=== PATIENT | female | born 1960 | race American Indian/Alaskan Native ===

== ENCOUNTER 2020-11-04 11:43 | Outpatient (CLI) | payer OTHER ==
--- NOTE | 2020-11-04 13:36 | XRay Report ---
BILATERAL KNEES STANDING AP VIEW INDICATION: Bilateral knee pain. COMPARISON: None. IMPRESSION: Normal bone mineralization. No significant valgus or varus deformity. Mild to moderate m edial compartment joint space narrowing and tibial spine spurring is identified in both knees. There is mild marginal spurring in the lateral compartment of the left knee. No acute osseous abnormality o r bone lesion is detected. BILATERAL ANKLES 3 VIEWS INDICATION: BILATERAL ANKLE PAIN. COMPARISON: None. IMPRESSION: No acute osseous or soft tissue abnormality. No significant DJD. Moderate plantar spu r is noted on the left side. Signer Name: Errol Mcdaniels Jr, MD Signed: 11/04/2020 1:32 PM Workstation Name: [id number]
== END 2020-11-04 11:44 | disposition home or self-care (01) ==
LOC: XRAY 11:43
PROVIDERS: ATTEND Orthopaedic Surgery
DX: M17.0 Bilateral primary osteoarthritis of knee (principal); M77.32 Calcaneal spur, left foot; M77.31 Calcaneal spur, right foot; M77.8 Other enthesopathies, not elsewhere classified
CPT/HCPCS: 73565

== ENCOUNTER 2020-11-22 13:27 | Emergency (ER) | payer OTHER ==
[2020-11-22 15:11] VITALS: BP 171/85
--- NOTE | 2020-11-22 16:56 | Emergency Department Report ---
ED General Adult HPI - General Chief complaint: Earache Stated complaint: EAR INFECTION Time Seen by Provider: 11/22/20 16:08 Source: patient Mode of arrival: Ambulatory Limitations: No Limitations - History of Present Illness Initial comments: 60-year-old female patient with history of hypertension and seasonal allergies presents to emergency department with complaints of bilateral ear discomfort, sneezing, and nasal congestion starting 5 days ago. Patient states symptoms are consistent with prior episodes of allergic rhinitis. She recently returned to the [facility] from [place]. She has been using Tylenol with limited relief. No current steroid or antibiotic use. Denies fever, chills, cough, neck stiffness, rash, vomiting. Denies all other complaints at this time. - Related Data Home Medications Medication Instructions Recorded Confirmed Last Taken Lisinopril/Hydrochlorothiazide 1 tab PO QDAY 09/22/13 09/22/13 09/22/13 08:00 [Zestoretic 10-12.5 mg] amLODIPine 10 mg PO QDAY 09/22/13 09/22/13 09/22/13 08:00 Previous Rx's Medication Instructions Recorded Last Taken Type HYDROcodone/APAP 5-325 [[place] 1 each PO Q6HR PRN #14 tablet 09/22/13 Unknown Rx 5-325 mg TAB] Ibuprofen [Motrin] 800 mg PO Q8H PRN #14 tablet 09/22/13 Unknown Rx Fluticasone [Flonase] 1 spray NS QDAY #1 bottle 11/22/20 Unknown Rx Hydroxyzine HCl [hydrOXYzine] 25 mg PO TID #20 tablet 11/22/20 Unknown Rx Allergies Allergy/AdvReac Type Severity Reaction Status Date / Time No Known Allergies Allergy Unverified 09/22/13 14:58 ED Review of Systems ROS: Stated complaint: EAR INFECTION Other details as noted in HPI Other: GENERAL: Negative for fever. ENT: Positive for ear pain, congestion, sneezing. CARDIOVASCULAR: Negative for chest pain. PULMONARY: Negative for shortness of breath. GASTROINTESTINAL: Negative for abdominal pain. MUSCULOSKELETAL: Negative for back pain. NEUROLOGICAL: Negative for headache. INTEGUMENTARY: Negative for rash. ED Past Medical Hx - Past Medical History Previous Medical History?: Yes Hx Hypertension: Yes - Surgical History Past Surgical History?: Yes Additional Surgical History: hysterectomy - Social History Smoking Status: Never Smoker Substance Use Type: None - Medications Home Medications: Home Medications Medication Instructions Recorded Confirmed Last Taken Type HYDROcodone/APAP 5-325 [[place] 1 each PO Q6HR PRN #14 tablet 09/22/13 Unknown Rx 5-325 mg TAB] Ibuprofen [Motrin] 800 mg PO Q8H PRN #14 tablet 09/22/13 Unknown Rx Lisinopril/Hydrochlorothiazide 1 tab PO QDAY 09/22/13 09/22/13 09/22/13 08:00 History [Zestoretic 10-12.5 mg] amLODIPine 10 mg PO QDAY 09/22/13 09/22/13 09/22/13 08:00 History Fluticasone [Flonase] 1 spray NS QDAY #1 bottle 11/22/20 Unknown Rx Hydroxyzine HCl [hydrOXYzine] 25 mg PO TID #20 tablet 11/22/20 Unknown Rx ED Physical Exam - General Limitations: No Limitations - Other Other exam information: General: Awake and alert. No acute distress. Head: Atraumatic, normocephalic. Eyes: EOMI. Pupils are equal and round. Normal sclera and conjunctiva. ENT: Oral mucosa is moist. Normal pharyngeal exam. Normal otoscopic exam. Nasal congestion noted. Neck: Supple. No lymphadenopathy. Pulmonary: No respiratory distress. Clear to auscultation bilaterally. Cardiac: Regular rate and rhythm. Pulses are palpable and equal bilaterally. No lower extremity cyanosis or edema. Skin: Warm and dry. No rashes. Abdomen: Soft, non-tender, non-protuberant. No guarding, rigidity, or rebound. Bowel sounds are normal. No organomegaly or masses noted. Back: Normal alignment. No CVA tenderness. Extremities: Symmetrical. Full range of motion intact. Neurological: Alert and oriented, appropriately interactive, no focal deficits. Psych: Cooperative. Appropriate mood and affect. Speech is evenly metered. Thoughts are logically construed. ED Course Vital Signs 11/22/20 15:10 Temperature 98.6 F Pulse Rate 64 Respiratory 18 Rate Blood Pressure 171/85 O2 Sat by Pulse 99 Oximetry ED Medical Decision Making - Medical Decision Making Differential diagnosis including but not limited to: allergic rhinitis, otitis media, pharyngitis, sinusitis Patient presents to the emergency department with complaints of bilateral ear pressure secondary to nasal congestion. She is afebrile, hemodynamically stable, well-hydrated, no hypoxia, no respiratory distress. No clinical indication for further diagnostic work-up on an emergent basis at this time. Patient will be discharged home with appropriate symptomatic treatment and referred to primary care provider for close outpatient follow-up. Patient expressed understanding and is agreeable to plan of care. Strict return precautions provided. History, exam, diagnostic testing, and current condition do not suggest worrisome pathology to warrant further testing, continued ED treatment, admission, or surgical evaluation at this point. Given the low probability of a significant medical illness, it would be more likely to result in harm than benefit to perform further testing at this stage. Discussed findings, pr esumptive diagnosis, need for follow-up and specific signs/symptoms that should prompt immediate return to the emergency department. Instructions were explained in detail to the patient in addition to giving written discharge information. Patient expressed understanding and was given the opportunity to ask questions, all of which were satisfactorily answered prior to discharge home. Critical care attestation.: If time is entered above; I have spent that time in minutes in the direct care of this critically ill patient, excluding procedure time. ED Disposition Clinical Impression: Rhinitis Qualifiers: Rhinitis type: acute Qualified Code(s): J00 - Acute nasopharyngitis [common cold] Disposition: DC-01 TO HOME OR SELFCARE Is pt being admited?: No Does the pt Need Aspirin: No Condition: Stable Instructions: Allergic Rhinitis, Adult, [id number] Additional Instructions: Take Tylenol every 4 hours and Motrin every 8 hours as needed for pain. Take Hydroxyzine as directed for congestion. Use Flonase as directed for congestion. Rest. Drink plenty fluids. Exposure to warm humidified air may help relieve congestion. Continue your blood pressure medication as previously prescribed. Follow-up with your primary care provider this week. Call tomorrow to schedule an appointment. Return to the emergency department immediately for new or worsening symptoms. Prescriptions: Fluticasone [Flonase] 1 spray NS QDAY #1 bottle Hydroxyzine HCl [hydrOXYzine] 25 mg PO TID #20 tablet Referrals: MANISH GOODWIN MD [Staff Physician] - 3-5 Days Time of Disposition: 16:59
== END 2020-11-22 17:14 | disposition home or self-care (01) ==
LOC: ED 13:27
DX: J31.0 Chronic rhinitis (principal); I10 Essential (primary) hypertension; Z90.710 Acquired absence of both cervix and uterus; Z79.899 Other long term (current) drug therapy
CPT/HCPCS: 99281